=== PATIENT | male | born 1980 | race Caucasian/White ===

== ENCOUNTER → 2024-12-18 12:36 | Outpatient (REF) | payer BC, SELFPAY | LOC: REG 12:36 | PROVIDERS: ATTENDING PHYSICIAN Specialist; FAMILY PHYSICIAN Family Medicine | DX: S05.50XA Penetrating wound with foreign body of unspecified eyeball, initial encounter (principal) | CPT/HCPCS: 70030 ==

== ENCOUNTER 2025-01-24 21:47 | Emergency (ER) | payer BC, SELFPAY ==
[2025-01-24 21:53] VITALS: BP 160/114
[2025-01-24 22:25] LABS: % Basophils 0.4 % (0-2); % Eosinophils 0.9 % (0-6); % Immature Granulocytes 0.1 % (0-0.5); % Monocytes 8.7 % (1.7-9.3); % Neutrophils 50.9 % (42.2-75.2); Absolute Eosinophils 0.1 10^3/uL (0-0.7); Absolute Lymphocytes 3.5 10^3/uL (1.2-3.4); Absolute Monocytes 0.8 10^3/uL (0.1-0.6); Absolute Neutrophils 4.6 10^3/uL (1.4-6.5); Hemoglobin 16.2 g/dL (13.0-18.0); Mean Corp Hgb Conc. 35.2 g/dL (33.0-37.0); Mean Corpuscular Hgb 29.7 pg (27.0-31.0); Mean Corpuscular Volume 84.2 fL (80.0-94.0); Mean Platelet Volume 9.5 fL (7.4-10.4); Nucleated Red Blood Cells % 0 % (-); Platelet Count 235 10^3/uL (130-400); Red Blood Cell Count 5.46 10^6/uL (4.70-6.10); Red Cell Dist. Width 12.3 % (11.5-14.5)
[2025-01-24 22:26] LABS: ALT (SGPT) 31 U/L (0-50); AST (SGOT) 23 U/L (17-59); Albumin 5.4 g/dl (3.5-5.0); Alkaline Phosphatase 51 U/L (38-126); Blood Urea Nitrogen 17 mg/dl (9-20); Calcium 9.9 mg/dl (8.4-10.2); Carbon Dioxide 30 mmol/L (22-30); Chloride 100 mmol/L (98-107); Glucose 139 mg/dl (70-99); Potassium 4.1 mmol/L (3.5-5.1); Sodium 142 mmol/L (135-145); Total Bilirubin 1.3 mg/dl (0.2-1.3); Total Protein 8.4 g/dl (6.3-8.2); eGFR > 60.00
[2025-01-24 22:34] LABS: Troponin I < 0.012 ng/ml
[2025-01-24 22:55] LABS: TSH Reflex To Free T4 1.92 uIU/ml (0.47-4.68)
[2025-01-24 23:07] VITALS: BP 159/102
[2025-01-25 00:37] LABS: D-Dimer < 0.27 ug/mlFEU (0.00-0.50)
--- NOTE | 2025-01-25 00:40 | ED.GENMED ---
History of Present Illness
General
Chief Complaint: Chest Pain
Source: patient
Exam Limitations: none
Time Seen by Provider: 01/24/25 23:20
History of Present Illness
History of Present Illness:
44yoM with no significant past medical history presenting for evaluation after an episode of shortness of breath. Patient was on a plane returning home from [facility] around 3 PM. He states he suddenly became short of breath with central chest
pressure. He felt like his heart was racing and he became very sweaty. He felt like there was not enough oxygen in the aircraft. Symptoms lasted for several minutes before resolving. Patient is asymptomatic at this point other than feeling
nervous. He researched his symptoms on [employer] and is questioning whether he had a panic attack. He denies any syncope, calf pain, leg swelling. No tobacco use. No family history of heart disease. Patient was seen by cardiology 2 years ago after
having some chest pain. He had an echocardiogram at that time which he was told was normal.
Phy Exam
General Physical Exam
General Presentation: well appearing and no apparent distress
General age: appears stated age
General Skin: warm and dry
General Habitus: normal
General Mental: alert
ENT Exam
ENT Exam: normocephalic
Cardiovascular Exam
Cardiovascular Exam: regular rate/rhythm and no murmur
Pulmonary Exam
Pulmonary Exam: lungs clear, no respiratory distress, no rales, no crackles, no rhonchi and no wheezing
Neurological Exam
Neurological Exam: alert
[place] Coma Scale
Eye Opening: Spontaneous
Verbal Response: Oriented
Motor Response: Obeys Commands
GCS Total Score: 15
Skin Exam
Skin Exam: normal color and warm/dry
Psychiatric Exam
Psychiatric Exam: normal mood/affect
Scores
Heart Score for Chest Pain Patients
STEMI patient?: No
History: Slightly or Non-Suspicious
ECG: Normal
Age: </= 45 years
Risk Factors: No Risk Factors
Troponin: </= Normal Limit
Heart Score for Chest Pain Patients: 0
Heart Score Risk: 2.5% MACE over next 6 weeks
Course
Orders/Labs/Results
Orders:
Orders
01/24/25 21:48
EKG [Electrocardiogram (*1)] Urgent
Reason for Study: Tachycardia
01/24/25 21:49
EKG- Treatment ONCE
01/24/25 22:03
Complete Blood Count/With Diff Urgent
Comprehensive Metabolic Panel Urgent
TSH Reflex To Free T4 Urgent
Troponin I Urgent
01/24/25 23:40
Cardiac Monitoring- Treatment ONCE
D-Dimer Urgent
CR Chest - 2 Views Urgent
Comment:
Reason For Exam: CP
Abnormal Lab Results
01/24/25
22:03
Absolute Lymphs (auto) 3.5 H 10^3/uL
(1.2-3.4)
Absolute Monos (auto) 0.8 H 10^3/uL
(0.1-0.6)
Glucose 139 H mg/dl
(70-99)
Total Protein 8.4 H g/dl
(6.3-8.2)
Albumin 5.4 H g/dl
(3.5-5.0)
01/24/25 22:03
01/24/25 22:03
Vital Signs
Initial and Last Documented VS:
Initial Vital Signs
Temp Pulse Resp BP Pulse Ox
97.9 F 118 16 160/114 98
01/24/25 21:53 01/24/25 21:53 01/24/25 21:53 01/24/25 21:53 01/24/25 21:53
Last Documented Vital Signs
Temp Pulse Resp BP Pulse Ox
97.9 F 75 12 124/92 98
01/24/25 21:53 01/25/25 00:45 01/25/25 00:45 01/25/25 00:45 01/25/25 00:45
MDM/Problems Addressed
Differential Diagnosis Includes:
44yoM here after an episode of chest pressure, SOB, and palpitations that occurred while on an airplane this afternoon. Resolved after a few minutes. HR 118 in triage and BP 160/114 although he admits to being very anxious. HR in the 80-90s during
initial exam. He is well-appearing in no acute distress. Exam reassuring. Differential diagnosis includes but is not limited to: Arrhythmia, panic attack, PE, ACS
Initial ED plan: Cardiac labs and EKG obtained in triage. EKG shows normal sinus rhythm without ST changes and troponin within normal limits. Troponin obtained >6 hours after symptoms, no indication for repeat troponin. Will check D-dimer and
chest x-ray.
*EKG
Interpreted by ED Provider?: Yes
EKG Intrepretation Date: 01/25/25
Heart Rate: 95
Rate: normal
Rhythm: sinus
[place]: normal axis
Interval: normal interval
QRS Pattern: normal QRS
Ischemia: no ischemia
*Critical Care Note
Total Time (30-74mins, 75-104mins- exclusive of procedures): Not Applicable
Update Note
Update Note:
D-dimer normal making PE very unlikely. Chest x-ray is clear per my interpretation. Vital signs normal on reassessment and he remains asymptomatic. No indication for hospitalization. He was advised to follow-up with his PCP. Discussed possible
need for Holter monitor if palpitations recur. ED return precautions reviewed. Patient in agreement with plan and was discharged in stable condition.
ED Attending Note
-
Portions of this chart may have been created with voice recognition software.� Occasional wrong word or��sound alike� substitutions may have occurred due to the inherent limitations of voice recognition software.
Discharge Plan
Departure
Patient Disposition: Home (Routine Discharge)
Date of Disposition: 01/25/25
Time of Disposition: 00:51
Patient with high blood pressure during this ER visit?: Yes
Discharge Problem:
Shortness of breath
Instructions: Shortness of breath in adults - ED discharge instructions
Referrals:
Uriel Meredith, DO [Family Provider] -
Activity Restrictions/Additional Instructions:
Please follow-up with your family doctor. Return to the ER with any new or worsening symptoms.
Interventions
Interventions:
*Risk Screen - Suicide Last Done: 01/24/25 23:15
*General Assessment Last Done: 01/24/25 23:15
*Neglect/Abuse Screening Last Done: 01/24/25 23:15
*ED- Fall Risk Assessment Last Done: 01/24/25 23:15
*ED COVID-19 Vaccine History Last Done: 01/24/25 23:15
ED- Cardiac Assessment Last Done: 01/24/25 23:13
Discharge Date and Time
Print Language: MOROCCAN
[2025-01-25 00:45] VITALS: BP 124/92
== END 2025-01-25 00:59 | disposition home or self-care (01) ==
LOC: EMR 21:47
PROVIDERS: Physician Assistant; EMERGENCY PHYSICIAN Student in an Organized Health Care Education/Training Program; FAMILY PHYSICIAN Family Medicine
DX: R06.02 Shortness of breath (principal); R07.89 Other chest pain
CPT/HCPCS: 99284; 71046; 80053; 84443; 84484; 85025; 85379; 93005